=== PATIENT | male | born 1975 | race Two or more races ===

== ENCOUNTER 2016-12-26 10:52 | Emergency (ER) | payer SELFPAY ==
--- NOTE | 2016-12-26 11:19 | NUR ---
PATIENT SEEN IN TRIAGE NO FURTHER CARE RENDERED. PATIENT IS LWBS.
== END 2016-12-26 11:19 | disposition left against medical advice (07) ==
LOC: MED 10:52
DX: R44.3 Hallucinations, unspecified (principal); Z53.21 Procedure and treatment not carried out due to patient leaving prior to being seen by health care provider